=== PATIENT | female | born 1945 | race Caucasian/White ===

== ENCOUNTER 2018-04-16 11:41 | Inpatient (IN) ==
[2018-04-16] MEDS ORDERED: CeFAZolin Syr 2,000MG/20 ML 2,000 MG/20 ML SYRINGE IVPB ONE (12:08)
[2018-04-16] MEDS ORDERED: Ringers Solution, Lactated 1,000 ML IVC SCH ×2 (12:15→17:23)
--- NOTE | 2018-04-16 12:22 | History & Physical Report ---
Date of Encounter: 04/16/18 Time of Encounter: 12:21 24 Hour HP Update - Instructions Instructions: If the History and Physical is less than 30 days old and was completed prior to A.M. admission and or procedure and has NOT been updated on calendar day of procedure please complete this update prior to performing procedure. - Update Patient reports changes in Medical Condition: No Changes in examination, assessment, or condition: No Changes in Medication: No Preop tests/diagnostics Reviewed: Yes Surgery Remains Indicated: Yes Consent for Planned Operative Procedure(s) Verified: Yes - Pre-Operative Checklist Preoperative Checklist Indicated: No Prophylactic Antibiotic Ordered: Yes Is VTE Prophylaxis Indicated?: Yes
[2018-04-16] MEDS ORDERED: Famotidine 20 MG/2 ML VIAL IVP ONE (12:46)
[2018-04-16] MEDS ORDERED: Pregabalin 75 MG CAPSULE PO ONE (12:47)
[2018-04-16] MEDS ORDERED: Acetaminophen IV 1,000 MG/100 ML INFUS..BTL IVPB ONE (12:47)
--- NOTE | 2018-04-16 12:50 | Anesthesia Evaluation PreOp ---
Date of Encounter: 04/16/18 Time of Encounter: 12:48 - Past History Planned Operation: Robotic L-TKR Cardiac History: HTN Pulmonary History: Denies Any Significant HX IRRIGATION ENGINEER History: Denies Any Significant HX Other Medical History: Denies Any Significant HX Anesthesia History: No Prior Anesthetic Complications, Past Anesthesia (Breast lumpectomy) Alcohol Use: none Drug use: none Medications and Allergies Aspirin Enteric Coated [Aspirin EC] 325 mg PO BID #20 tablet.dr 04/16/18 [Rx] Lisinopril [Zestril] 20 mg PO DAILY 04/16/18 [History] Multivitamin [Multivitamins] 1 cap PO DAILY 04/16/18 [History] OxyCODONE Immed Rel [Roxicodone 5 MG] 5 mg PO Q6HR PRN 5 Days #20 tablet 8 [Rx] Allergy/AdvReac Type Severity Reaction Status Date / Time No Known Allergies Allergy Verified 04/16/18 12:03 - Meds/Allergy Pre-op Review Medications Reviewed: Yes Allergies Reviewed: Yes Beta Blockers on Current Med List: No Anesthesia Results - Labs Laboratory Tests 11/16/17 03/24/18 03/24/18 08:42 12:00 12:00 WBC 5.7 Hgb 12.5 Hct 38.8 Plt Count 204 PT 11.2 INR 1.0 APTT 35.6 Sodium Potassium Chloride Carbon Dioxide BUN Est GFR (Non-Af Amer) Glucose 93 03/24/18 12:00 WBC Hgb Hct Plt Count PT INR APTT Sodium 141 Potassium 4.2 Chloride 107 Carbon Dioxide 28 BUN 16 Est GFR (Non-Af Amer) > 60 Glucose - Imaging EKG: image reviewed (64bpm - SINUS RHYTHM Electronically Signed On 03-26-2018 22:54:36 EDT by Laila Schmitt) Anesthesia Exam O2 Sat Height 1.57 m Height 1.57 m Weight 63.049 kg Weight 63.049 kg O2 Sat by Pulse Oximetry 99 Vital Signs Temp Pulse Resp BP Pulse Ox 98.3 F 61 18 188/81 99 04/16/18 12:30 04/16/18 12:30 04/16/18 12:30 04/16/18 12:30 04/16/18 12:30 Height: 5'0" Weight: 140# BMI = 25.4 - HEENT Pupil (Motor): Pupils equal, EOMI Mallampati: II Teeth: Normal, Missing Denture Type: Upper: Partial, Lower: Partial Oral Opening: Greater than 3 - IRRIGATION ENGINEER LOC: Oriented IRRIGATION ENGINEER Motor: Normal RUE, Normal LUE, Normal RLE, Normal LLE, Normal Face IRRIGATION ENGINEER Sensory: Normal: RUE, LUE, RLE, LLE, Face - Cardiac Rhythm: Regular Murmur: None - Pulmonary Breath Sounds: bilateral Clear Respiratory Effort: Symmetrical Anesthesia Assess/Plan ASA Score: 2 Modified [place] Scale for Level of Consciousness: Cooperative, oriented, and tranquil Anesthetic Plan: General, Regional Monitoring Plan: Standard Monitors Recovery Plan: PACU Anes Supervising Prov Stmt: Pt seen/evaluated, R&B Discussed, questions answered and consent obtained. Radha Longo MD
--- NOTE | 2018-04-16 13:21 | Discharge Summary ---
<Oh Quiñones - Last Filed: 04/16/18 13:20> Orders not resulted at time of discharge: Pending orders 04/16/18 00:01 XR knee LT 1-2V [XR] Routine H/H [Hemoglobin and Hematocrit] [HEME] Routine 04/16/18 12:46 US anesthesia pain block [US] Routine - Discharge Diagnosis (1) Arthritis of left knee Priority: Primary Status: Chronic (2) Status post total left knee replacement Priority: Primary Status: Acute (3) Hypertension Priority: Secondary Status: Chronic Qualifiers: Hypertension type: unspecified Qualified Code(s): I10 - Essential (primary) hypertension - Hospital Course Hospital course: Ms. Pierson is a 73 year old female - Time Spent with Patient Total time spent providing and/or coordinating discharge services: - Discharge Medications Home Medications: Aspirin Enteric Coated [Aspirin EC] 325 mg PO BID #20 tablet.dr 04/16/18 [Rx] Lisinopril [Zestril] 20 mg PO DAILY 04/16/18 [History] Multivitamin [Multivitamins] 1 cap PO DAILY 04/16/18 [History] OxyCODONE Immed Rel [Roxicodone 5 MG] 5 mg PO Q6HR PRN 5 Days #20 tablet 04/16/18 [Rx] Scopolamine Patch [Transderm-Scop] 1.5 mg TD Q72H patch.[id number] 04/20/18 [Rx] Allergies/Adverse Reactions: Allergy/AdvReac Type Severity Reaction Status Date / Time No Known Allergies Allergy Verified 04/16/18 12:03 Primary care physician: Milena Levien - Patient Status Disposition: Transfer SNF Condition: Good - Discharge Instructions Instructions: Total Knee Replacement (DC) Follow Up With: Milena Levine [Primary Care Provider] - <Radha Bueno - Last Filed: 04/20/18 13:41> Date of Encounter: 04/20/18 Time of Encounter: 13:37 - Discharge Diagnosis (1) Acute blood loss anemia Priority: Secondary Status: Acute Comments: Resolved - Received 2units of blood on 04/18. Asympt at this time. Laboratory Results - last 72 hr 04/18/18 04/18/18 04/18/18 02:46 02:46 08:21 Hgb 7.5 L Hct 23.8 L Sodium 139 Potassium 4.4 Chloride 108 H Carbon Dioxide 27 BUN 21 Creatinine 0.80 Est GFR ( Amer) > 60 Est GFR (Non-Af Amer) > 60 BUN/Creatinine Ratio 26 Glucose 138 H Calculated Osmolality 293 Calcium 8.3 L Blood Type O POSITIVE Antibody Screen NEGATIVE Crossmatch See Detail 04/19/18 03:56 Hgb 10.2 L D Hct 30.9 L Sodium Potassium Chloride Carbon Dioxide BUN Creatinine Est GFR ( Amer) Est GFR (Non-Af Amer) BUN/Creatinine Ratio Glucose Calculated Osmolality Calcium Blood Type Antibody Screen Crossmatch (2) Status post total left knee replacement Priority: Primary Status: Acute Comments: Opsite dressing, leave intact until first post-operative visit. If dressing becomes >50% saturated, contact office, remove dressing and place appropriate dressing in its place. Do not allow for dressing to get wet. Zipline/Reddick in place, plan to remove at post-operative day #14-16. Total Joint Precautions x 6 weeks Apply cold therapy wrap 3-6x/day for 20 minutes at a time. Encourage ambulation throughout the day Use Incentive spirometer 10x/hour. Elevate affected extremity above heart as tolerated. Brace: Wear knee immobilizer at night until first post-operative appointment. (3) Arthritis of left knee Priority: Primary Status: Chronic (4) Hypertension Status: Chronic Qualifiers: Hypertension type: unspecified Qualified Code(s): I10 - Essential (primary) hypertension - Hospital Course Hospital course: Ms. Pierson is a 73 year old female status post Total Knee Replacement on 04/16/18 with . She had acute blood loss anemia and received 2 units of blood on 04/18, with post-operative nausea. We held Oxycodone on 04/20, and started Cedar and added Scopalamine patch. Patient otherwise had uneventful postoperative course. Stable for discharge. A&OX3 Afebrile, vital signs stable. Vital Signs Temp Pulse Resp BP Pulse Ox 04/20/18 09:51 98.1 F 86 18 153/76 97 04/20/18 06:37 98.4 F 81 96 169/72 04/20/18 03:33 98.1 F 80 16 138/76 94 04/19/18 18:54 97.5 F L 83 16 147/73 99 04/19/18 15:27 97.8 F 88 18 132/61 99 Intake and Output 04/19/18 04/20/18 04/20/18 23:59 07:59 15:59 Intake Total 320 / 320 Output Total 350 / 350 450 / 450 300 / 300 Balance -30 / -30 -450 / -450 -300 / -300 Intake: Oral 320 / 320 Output: Urine 350 / 350 450 / 450 300 / 300 Other: Meal Dinner Percent of Meal Consumed 50% # Voids 1 1 Weight 64.6 kg 04/19 Labs reviewed. H/H - stable, asymptomatic Laboratory Results - last 72 hr 04/18/18 04/18/18 04/18/18 02:46 02:46 08:21 Hgb 7.5 L Hct 23.8 L Sodium 139 Potassium 4.4 Chloride 108 H Carbon Dioxide 27 BUN 21 Creatinine 0.80 Est GFR ( Amer) > 60 Est GFR (Non-Af Amer) > 60 BUN/Creatinine Ratio 26 Glucose 138 H Calculated Osmolality 293 Calcium 8.3 L Blood Type O POSITIVE Antibody Screen NEGATIVE Crossmatch See Detail 04/19/18 03:56 Hgb 10.2 L D Hct 30.9 L Sodium Potassium Chloride Carbon Dioxide BUN Creatinine Est GFR ( Amer) Est GFR (Non-Af Amer) BUN/Creatinine Ratio Glucose Calculated Osmolality Calcium Blood Type Antibody Screen Crossmatch Pain control: adequate Participating in PT. All questions and concerns addressed. Educated on use of incentive spirometer. Encouraged ambulation and proper hydration. Patient educated on post-operative restrictions and post-operative care. Assessment and plan: Continue with postoperative care Discharge plan: GF, ECF today. Scopalamine patch placed Cedar RX given. - Time Spent with Patient Total time spent providing and/or coordinating discharge services: Date of admission: 04/17/18 07:55 Primary care physician: Milena Levine Consults: 04/16/18 17:23 Consult to Occupational Therapy [CONS] Routine Comment: Evaluate, develop and implement POC Reason for Consult: post knee surgery Does patient have active BEDREST order?: No Is patient medically & hemodynamically stable?: Yes Consult to Orthopedic Navigator [CONS] [CONS] Routine Consult to Physical Therapy [CONS] Routine Comment: Evaluate, develop and impliment POC Reason for Consult: post knee surgery Does patient have active BEDREST order?: No Is patient medically & hemodynamically stable?: Yes Consult to Exhaust Tender [CONS] Routine Reason for SW Consult: post op joint replacement RT Post Op Consult [CONS] Routine Discharging clinician: Radha Bueno Anticipated date of discharge: 04/20/18 - Impressions ITS Impressions Knee X-Ray 04/16/18 00:01 IMPRESSION: Status post left total knee arthroplasty. D/ / Nba Brizuela MD / Nba Brizuela MD Interpreting Provider: Nba Brizuela MD - Patient Status Functional capacity at discharge: uses cane/walker Overall status at discharge: patient is progressing back to baseline
[2018-04-16] MEDS ORDERED: Tetracaine/PF 20 MG/2 ML AMPUL ONE (13:32)
[2018-04-16] MEDS ORDERED: Bupivacaine/Clonidine Syringe 1 EACH SYRINGE ONE (13:32)
[2018-04-16] MEDS ORDERED: ROPIVACAINE HCL/PF 0.5% 30 ML VIAL ONE (13:32)
[2018-04-16] MEDS ORDERED: *HR* Midazolam HCl 2 MG/2 ML VIAL ONE (13:44)
[2018-04-16] MEDS ORDERED: *HR* FentaNYL (PF) 100 MCG/2 ML VIAL ONE (13:44)
[2018-04-16] MEDS ORDERED: Ethanol\\Acetic Acid\\Na Ace\\Ben 1,000 ML IRRIG.SOLN IR ONE (13:46)
[2018-04-16] MEDS ORDERED: *HR* Propofol 200 MG/20 ML VIAL IVP ONE (13:46)
[2018-04-16] MEDS ORDERED: Lidocaine -MPF 2% 2 ML VIAL ONE (13:48)
[2018-04-16] MEDS ORDERED: EPHEDrine 50 MG/ML VIAL ONE (14:58)
[2018-04-16] MEDS ORDERED: Ondansetron 4 MG/2 ML VIAL ONE (15:02)
[2018-04-16] MEDS ORDERED: Dexamethasone 4 MG/ML VIAL ONE (15:02)
--- NOTE | 2018-04-16 15:42 | Orthopedic Operative Note ---
Date of procedure: 04/16/18 Pre-op diagnosis: Left knee arthritis Post-op diagnosis: same Procedure: Procedure: Left robotic-assisted Total knee replacement Estimated blood loss: 300 cc Hardware: Metal and polyethylene replacement. [place] Femur: 3 Tibia:3 TS insert: 9 Patella:36 Exam Under anesthesia: 24 degree flexion contracture 15 degree varus as calculated by the robot full flexion and no instability Procedural Notes: Grade 4 arthritic changes all 3 compartments Operative procedure: The patient was brought to the operating room and placed on the operating room table. After general anesthesia was administered the operative knee was examined. Findings were noted in the exam under anesthesia. The operative extremity was prepped and draped in sterile surgical fashion. The patient received IV antibiotics prior to skin incision. A standard midline incision was made centered over the patella. The incision was made through the skin and subcutaneous tissue. A medial parapatellar tendon approach was performed. Care was taken to preserve tissue along the medial aspect of the patella. And to protect the patella tendon. The deep MCL was released off the medial tibia. The infra patella fat pad was excised. The patella was everted and cut was made at the level of the insertion of the quadriceps and patella tendon. The patella was sized the guide was seated and the lug holes are drilled. Knee was brought into flexion. Patient noted to have grade 4 arthritic changes all 3 compartments. Steinmann pins were placed in the tibia and the femur for the tibial and femoral arrays respectively. Checkpoints were also placed in the tibia and the femur for calculation purposes. The knee including the femur and the tibial registered. Osteophytes, ACL and PCL were excised at this point. Extension and flexion were assessed with a valgus stress components were adjusted on the computer to balance the knee. Femoral cuts were made first with robotic assistance, these included the anterior cut posterior cuts chamfer cuts. Tibial cut was then performed with robotic assistance as well. Bone fragments were removed, as well as the medial and lateral meniscus. The size 3 femoral guide was seated box cut was made lug holes are drilled. The size 3 tibial tray was seated and prepared with the fin cutter. Trial reduction with the 9 TS Gayle revealed extension of 0 degree and 8 degrees full flexion. No varus valgus instability. Trial reduction revealed excellent patella tracking. All trial components were removed all bony surfaces were irrigated. The Tibia was seated followed by the femur, The selected Gayle size was seated and secured patella. Patient had similar findings for motion and stability. The knee was then irrigated out with 2 L of pulse irrigation. The extensor mechanism was closed with #2 FiberWire suture and #2 PDS suture. The subcutaneous tissue was then irrigated and closed deep with #1 PDS suture superficially with 0 PDS suture and skin was closed with zip tie The patient was then placed in a sterile dressing and a postoperative brace extubated and transferred to recovery room in stable condition. Anesthesia: GETA Surgeon: Oh Quiñones Was there an safety admin assistant present: No Estimated blood loss (cc): 300 Condition: stable Disposition: PACU
--- NOTE | 2018-04-16 16:17 | Anesthesia Evaluation Post Op ---
Date of Encounter: 04/16/18 Time of Encounter: 16:45 - Vital Signs Vital Signs: Vital Signs/O2 Sat/Glucose, Most Current Vital Signs Temp Pulse Resp BP Pulse Ox 04/16/18 16:40 98.0 F 62 18 143/60 100 04/16/18 16:30 98.0 F 72 18 179/78 100 04/16/18 16:20 97.6 F 89 18 165/77 100 04/16/18 16:10 97.6 F 92 18 170/78 100 04/16/18 16:00 97.5 F L 79 18 160/71 100 04/16/18 15:50 96.8 F L 89 18 129/75 100 04/16/18 14:27 60 16 135/61 98 04/16/18 14:12 59 16 139/62 98 04/16/18 14:07 63 16 136/60 98 04/16/18 14:02 60 16 146/61 95 04/16/18 13:57 60 18 179/78 97 04/16/18 12:30 98.3 F 61 18 188/81 99 Intake and Output Patient Weight 04/17/18 23:59 Weight 64.06 kg - Lungs Lungs: Clear Ascult./Percussion - Airway Airway: Non-obstructed - Cardiovascular Regular Rate, Baseline Rhythm - Mental Status Mental Status: Alert & Oriented, Answers Appropriately - Pain Pain Scale: 2 Pain Scale used: Numeric (1 - 10) - Nausea Vomiting Nausea Vomiting: Not Present - Hydration Hydration: Tolerates oral liquids - Discharge PostOp Status: Transfer Patient to floor Anes Supervising Prov Stmt: Pt seen/evaluated, VSS and has met criteria for discharge to home. - MD Donta
[2018-04-16 16:27] LABS: Hematocrit 33.6 % (35.3-44.9); Hemoglobin 11.2 g/dL (11.5-15.4)
[2018-04-16] MEDS ORDERED: *HR* Labetalol 20 MG/4 ML SYRINGE IVP ONE (16:34)
[2018-04-16] MEDS ORDERED: *HR* Labetalol 20 MG/4 ML SYRINGE IVP PRN (16:35)
[2018-04-16] MEDS ORDERED: Sennosides 8.6 MG TABLET PO PRN (17:23)
[2018-04-16] MEDS ORDERED: *HR* OxyCODONE/APAP 5/325 TABLET PO PRN (17:23)
[2018-04-16] MEDS ORDERED: MOM Conc 10 ML UD.LIQ PO PRN (17:23)
[2018-04-16] MEDS ORDERED: Naloxone 0.4 MG/ML INJ IVP PRN (17:23)
[2018-04-16] MEDS ORDERED: Temazepam 15 MG CAPSULE PO PRN (17:23)
[2018-04-16] MEDS: *HR* Enoxaparin 30 MG/0.3 ML SYRINGE SQ SCH (18:19)
[2018-04-16] MEDS: *HR* OxyCODONE Immed Rel 5 MG TABLET PO PRN (18:19)
[2018-04-17] MEDS: Ondansetron 4 MG/2 ML VIAL IVP PRN (03:18)
[2018-04-17] MEDS: *HR* Enoxaparin 30 MG/0.3 ML SYRINGE SQ SCH ×2 (05:17→17:54)
[2018-04-17] MEDS: Multivit/Ca/Min/Fe/FA 1 TAB TABLET PO SCH (07:37)
[2018-04-17] MEDS: Lisinopril 20 MG TABLET PO SCH (07:37)
--- NOTE | 2018-04-17 07:55 | Orthopedics Progress Note ---
Date of Encounter: 04/17/18 Time of Encounter: 07:54 - Assessment and Plan (1) Arthritis of left knee Current Visit: Yes Status: Chronic (2) Status post total left knee replacement Current Visit: Yes Status: Acute (3) Hypertension Current Visit: Yes Status: Chronic Qualifiers: Hypertension type: unspecified Qualified Code(s): I10 - Essential (primary) hypertension Subjective Interval history: Patient was seen this morning doing well without complaints. Afebrile vital signs stable. Operative extremity: Neurovascularly intact Dressing clean dry and intact Calves nontender Assessment and plan: Continue with postoperative care Patient unable to be discharged today patient is unsafe to go home, we will convert inpatient with the plan for discharge tomorrow the patient may need extended care facility if she does not progress appropriately with physical therapy. Objective Vital signs: Vital Signs Temp Pulse Resp BP Pulse Ox 04/17/18 03:09 97.7 F 65 14 111/67 94 04/17/18 00:17 97.6 F 64 14 97/56 95 04/16/18 20:20 97.4 F L 71 16 135/65 97 04/16/18 20:10 97 04/16/18 19:13 97.4 F L 66 14 132/62 97 04/16/18 18:23 97.4 F L 63 16 123/69 100 04/16/18 17:51 97.7 F 61 16 162/74 99 04/16/18 17:30 100 04/16/18 17:25 97.5 F L 63 14 154/76 100 04/16/18 16:40 98.0 F 62 18 143/60 100 04/16/18 16:30 98.0 F 72 18 179/78 100 04/16/18 16:20 97.6 F 89 18 165/77 100 04/16/18 16:10 97.6 F 92 18 170/78 100 04/16/18 16:00 97.5 F L 79 18 160/71 100 04/16/18 15:50 96.8 F L 89 18 129/75 100 04/16/18 14:27 60 16 135/61 98 04/16/18 14:12 59 16 139/62 98 04/16/18 14:07 63 16 136/60 98 04/16/18 14:02 60 16 146/61 95 10/20/18 13:57 60 18 179/78 97 04/16/18 12:30 98.3 F 61 18 188/81 99 Intake and Output 04/16/18 04/16/18 04/17/18 15:59 23:59 07:59 Intake Total 100 / 100 100 / 100 Output Total 300 / 300 500 / 500 Balance -300 / -300 100 / 100 -400 / -400 Intake: IV Fluids 100 / 100 100 / 100 Ancef 2,000 MG In 0.9 % Sodium 100 / 100 100 / 100 Chloride 100 ML @ 200 mls/hr IVPB Q8H VAINNEY Rx#:[id number] Oral 0 / 0 Output: Urine 500 / 500 Estimated Blood Loss 300 / 300 Other: Weight 63.049 kg 64.06 kg Patient Weight 04/17/18 23:59 Weight 64.06 kg - Labs CBC & BMP: 04/16/18 16:10 Labs: Abnormal lab results Hgb 11.2 g/dL (11.5-15.4) L 04/16/18 16:10 Hct 33.6 % (35.3-44.9) L 04/16/18 16:10 Consult Discharge Plan - Plan Referrals: Milena Levine [Primary Care Provider] - Prescriptions: Aspirin Enteric Coated [Aspirin EC] 325 mg PO BID #20 tablet. OxyCODONE Immed Rel [Roxicodone 5 MG] 5 mg PO Q6HR PRN 5 Days #20 tablet PRN Reason: Pain
[2018-04-17 08:15] LABS: Hemoglobin 8.9 g/dL (11.5-15.4)
[2018-04-17 08:40] LABS: BUN/Creatinine Ratio 24 (6-26); Blood Urea Nitrogen 18 mg/dL (8-23); Calcium 8.7 mg/dL (8.6-10.3); Carbon Dioxide 23 mEq/L (23-29); Chloride 106 mEq/L (98-107); Glucose 169 mg/dL (70-105); Osmolality,Calculated 292 (280-300); Potassium 4.4 mEq/L (3.5-5.1); Sodium 138 mEq/L (136-145); eGFR For Non-African Americans > 60 (> 60)
[2018-04-17] MEDS: traMADol 50 MG TABLET PO PRN (17:54)
[2018-04-18] MEDS: *HR* OxyCODONE Immed Rel 5 MG TABLET PO PRN ×2 (00:16→08:47)
[2018-04-18 02:58] LABS: Hematocrit 23.8 % (35.3-44.9); Hemoglobin 7.5 g/dL (11.5-15.4)
[2018-04-18 03:17] LABS: BUN/Creatinine Ratio 26 (6-26); Blood Urea Nitrogen 21 mg/dL (8-23); Calcium 8.3 mg/dL (8.6-10.3); Carbon Dioxide 27 mEq/L (23-29); Chloride 108 mEq/L (98-107); Glucose 138 mg/dL (70-105); Osmolality,Calculated 293 (280-300); Potassium 4.4 mEq/L (3.5-5.1); Sodium 139 mEq/L (136-145); eGFR For Non-African Americans > 60 (> 60)
[2018-04-18] MEDS: *HR* Enoxaparin 30 MG/0.3 ML SYRINGE SQ SCH ×2 (05:43→18:43)
--- NOTE | 2018-04-18 06:51 | Orthopedics Progress Note ---
Date of Encounter: 04/18/18 Time of Encounter: 06:50 - Assessment and Plan (1) Arthritis of left knee Current Visit: Yes Status: Chronic (2) Status post total left knee replacement Current Visit: Yes Status: Acute (3) Hypertension Current Visit: Yes Status: Chronic Qualifiers: Hypertension type: unspecified Qualified Code(s): I10 - Essential (primary) hypertension (4) Acute blood loss anemia Current Visit: Yes Status: Acute Subjective Interval history: Patient was seen this morning doing well without complaints. Afebrile vital signs stable. Operative extremity: Neurovascularly intact Dressing clean dry and intact Calves nontender Assessment and plan: Continue with postoperative care Hemoglobin 7.5 transfuse 2 units will see if patient stable for discharge this afternoon. Objective Vital signs: Vital Signs Temp Pulse Resp BP Pulse Ox 04/18/18 06:44 97.1 F L 83 14 113/63 97 04/18/18 03:24 98.0 F 69 14 108/70 96 04/18/18 00:16 98.5 F 78 16 116/66 94 04/17/18 20:30 96 04/17/18 18:52 98.0 F 87 16 113/62 96 04/17/18 16:24 97.5 F L 88 16 120/70 98 04/17/18 12:11 97.4 F L 67 17 79/46 100 04/17/18 08:11 97.8 F 78 18 110/66 98 Intake and Output 04/17/18 04/17/18 04/18/18 15:59 23:59 07:59 Intake Total 1540 / 1540 0 / 0 Output Total 600 / 600 500 / 500 300 / 300 Balance -600 / -600 1040 / 1040 -300 / -300 Intake: IV Fluids 1000 / 1000 Lactated Ringers 1,000 ML @ 75 1000 / 1000 mls/hr IVC .[id number] VIANNEY Rx#: [id number] Oral 540 / 540 0 / 0 Output: Urine 600 / 600 500 / 500 300 / 300 Other: Meal Dinner Percent of Meal Consumed 100% Stool Size Small Stool Consistency soft # Voids 1 # Bowel Movements 1 Weight 64.52 kg Patient Weight 04/18/18 23:59 Weight 64.52 kg - Labs CBC & BMP: 04/18/18 02:46 04/18/18 02:46 Labs: Abnormal lab results Hgb 7.5 g/dL (11.5-15.4) L 04/18/18 02:46 Hct 23.8 % (35.3-44.9) L 04/18/18 02:46 Chloride 108 mEq/L (98-107) H 04/18/18 02:46 Glucose 138 mg/dL (70-105) H 04/18/18 02:46 Calcium 8.3 mg/dL (8.6-10.3) L 04/18/18 02:46 Consult Discharge Plan - Plan Referrals: Milena Levine [Primary Care Provider] -
[2018-04-18] MEDS: Multivit/Ca/Min/Fe/FA 1 TAB TABLET PO SCH (08:47)
[2018-04-18] MEDS: Lisinopril 20 MG TABLET PO SCH (08:47)
[2018-04-18] MEDS ORDERED: 0.9 % Sodium Chloride 250 ML ONE ×2 (11:28→16:12)
[2018-04-18] MEDS: traMADol 50 MG TABLET PO PRN (21:20)
[2018-04-19 04:50] LABS: Hematocrit 30.9 % (35.3-44.9); Hemoglobin 10.2 g/dL (11.5-15.4)
[2018-04-19] MEDS: traMADol 50 MG TABLET PO PRN ×2 (05:17→16:41)
[2018-04-19] MEDS: *HR* Enoxaparin 30 MG/0.3 ML SYRINGE SQ SCH ×2 (05:18→16:42)
--- NOTE | 2018-04-19 06:26 | Orthopedics Progress Note ---
Date of Encounter: 04/19/18 Time of Encounter: 06:26 - Assessment and Plan (1) Arthritis of left knee Current Visit: Yes Status: Chronic (2) Status post total left knee replacement Current Visit: Yes Status: Acute (3) Hypertension Current Visit: Yes Status: Chronic Qualifiers: Hypertension type: unspecified Qualified Code(s): I10 - Essential (primary) hypertension (4) Acute blood loss anemia Current Visit: Yes Status: Acute Subjective Interval history: Patient was seen this morning doing well without complaints. Afebrile vital signs stable. Operative extremity: Neurovascularly intact Dressing clean dry and intact Calves nontender Assessment and plan: Continue with postoperative care Hemoglobin 10.2 stable for discharge Objective Vital signs: Vital Signs Temp Pulse Resp BP Pulse Ox 04/18/18 23:25 98.4 F 105 14 146/78 93 04/18/18 20:15 99.0 F 83 16 154/83 94 04/18/18 18:26 99.1 F 86 14 146/69 97 04/18/18 16:50 98.8 F 83 16 129/83 96 04/18/18 16:35 98.6 F 85 15 167/78 04/18/18 15:58 97.6 F 82 18 145/80 99 04/18/18 14:05 98.1 F 83 14 136/65 96 04/18/18 11:49 98.2 F 76 14 112/70 96 04/18/18 11:35 97.7 F 73 14 108/69 93 04/18/18 10:30 98.2 F 74 14 113/64 97 04/18/18 06:44 97.1 F L 83 14 113/63 97 Intake and Output 04/18/18 04/18/18 04/19/18 15:59 23:59 07:59 Intake Total 874 / 874 300 / 300 Output Total 400 / 400 800 / 800 600 / 600 Balance 474 / 474 -500 / -500 -600 / -600 Intake: Oral 240 / 240 0 / 0 Blood Product 634 / 634 300 / 300 Rbcs Leuko Poor As-1 Unit 300 / 300 [id number] Rbcs Leuko Poor As-1 Unit 634 / 634 [id number] Output: Urine 400 / 400 800 / 800 600 / 600 Other: Meal Lunch Percent of Meal Consumed 50% - Labs CBC & BMP: 04/19/18 03:56 04/18/18 02:46 Labs: Abnormal lab results Hgb 10.2 g/dL (11.5-15.4) L D 04/19/18 03:56 Hct 30.9 % (35.3-44.9) L 04/19/18 03:56 Chloride 108 mEq/L (98-107) H 04/18/18 02:46 Glucose 138 mg/dL (70-105) H 04/18/18 02:46 Calcium 8.3 mg/dL (8.6-10.3) L 04/18/18 02:46 Consult Discharge Plan - Plan Referrals: Milena Levine [Primary Care Provider] -
[2018-04-19] MEDS: Lisinopril 20 MG TABLET PO SCH (09:45)
[2018-04-19] MEDS: Multivit/Ca/Min/Fe/FA 1 TAB TABLET PO SCH (09:45)
[2018-04-20] MEDS: *HR* Enoxaparin 30 MG/0.3 ML SYRINGE SQ SCH (06:21)
[2018-04-20] MEDS: *HR* OxyCODONE Immed Rel 5 MG TABLET PO PRN (06:59)
--- NOTE | 2018-04-20 08:02 | Orthopedics Progress Note ---
Date of Encounter: 04/20/18 Time of Encounter: 08:01 - Assessment and Plan (1) Arthritis of left knee Current Visit: Yes Status: Chronic (2) Status post total left knee replacement Current Visit: Yes Status: Acute (3) Hypertension Current Visit: Yes Status: Chronic Qualifiers: Hypertension type: unspecified Qualified Code(s): I10 - Essential (primary) hypertension (4) Acute blood loss anemia Current Visit: Yes Status: Acute Subjective Interval history: Patient was seen this morning doing well without complaints. Afebrile vital signs stable. Operative extremity: Neurovascularly intact Dressing clean dry and intact Calves nontender Assessment and plan: Continue with postoperative care stable for discharge Objective Vital signs: Vital Signs Temp Pulse Resp BP Pulse Ox 04/20/18 06:37 98.4 F 81 96 169/72 04/20/18 03:33 98.1 F 80 16 138/76 94 04/19/18 18:54 97.5 F L 83 16 147/73 99 04/19/18 15:27 97.8 F 88 18 132/61 99 04/19/18 11:27 98.3 F 82 18 171/80 95 04/19/18 10:19 98.7 F 76 16 155/70 97 Intake and Output 04/19/18 04/20/18 04/20/18 23:59 07:59 15:59 Intake Total 320 / 320 Output Total 350 / 350 450 / 450 Balance -30 / -30 -450 / -450 Intake: Oral 320 / 320 Output: Urine 350 / 350 450 / 450 Other: Meal Dinner Percent of Meal Consumed 50% # Voids 1 1 Weight 64.6 kg - Labs CBC & BMP: 04/19/18 03:56 04/18/18 02:46 Labs: Abnormal lab results Hgb 10.2 g/dL (11.5-15.4) L D 04/19/18 03:56 Hct 30.9 % (35.3-44.9) L 04/19/18 03:56 Chloride 108 mEq/L (98-107) H 04/18/18 02:46 Glucose 138 mg/dL (70-105) H 04/18/18 02:46 Calcium 8.3 mg/dL (8.6-10.3) L 04/18/18 02:46 Consult Discharge Plan - Plan Referrals: Milena Levine [Primary Care Provider] -
[2018-04-20] MEDS: Multivit/Ca/Min/Fe/FA 1 TAB TABLET PO SCH (08:27)
[2018-04-20] MEDS: Lisinopril 20 MG TABLET PO SCH (08:27)
[2018-04-20] MEDS: Ondansetron 4 MG/2 ML VIAL IVP PRN (08:27)
[2018-04-20 10:51] VITALS: BP 153/76
[2018-04-20] MEDS ORDERED: *HR* HYDROcodone/Acet 5/325 mg TABLET PO PRN (11:29)
[2018-04-20] MEDS ORDERED: Scopolamine Patch 1.5 MG PATCH.TD72 TD SCH (11:45)
--- NOTE | 2018-04-20 13:36 | Physician Discharge Referral ---
ExtendedCare Referral Info Transfer To: [facility] Provider in Charge: Provider in Charge after Transfer: PCP Institutional Level of Care: Skilled - Diagnosis (1) Acute blood loss anemia Priority: Primary Status: Acute (2) Status post total left knee replacement Priority: Primary Status: Acute (3) Arthritis of left knee Priority: Primary Status: Chronic (4) Hypertension Priority: Secondary Status: Chronic Expected Duration of Placement: < 30 days Prognosis: Good Aware of Diagnosis: Patient Aware of Prognosis: Patient - Transfer Medications Home Medications: Aspirin Enteric Coated [Aspirin EC] 325 mg PO BID #20 tablet.dr 04/16/18 [Rx] Lisinopril [Zestril] 20 mg PO DAILY 04/16/18 [History] Multivitamin [Multivitamins] 1 cap PO DAILY 04/16/18 [History] OxyCODONE Immed Rel [Roxicodone 5 MG] 5 mg PO Q6HR PRN 5 Days #20 tablet [Rx] Scopolamine Patch [Transderm-Scop] 1.5 mg TD Q72H patch.[id number] 04/20/18 [Rx] Allergies/Adverse Reactions: Allergy/AdvReac Type Severity Reaction Status Date / Time No Known Allergies Allergy Verified 04/16/18 12:03 - Respiratory Orders None Smoking Cessation: Smoking cessation has been advised. For more information, call the [facility] Tobacco Quit Line at [phone]. - Lab Orders Lab Orders: CBC - Advance Directives Code Status: Full Code - Mobility Orders Chair, Ambulate - Rehabiliation Orders Rehab Potential: Good Rehab Orders: ROM Exercises, Evaluation for Physical Therapy, Evaluation for Occupational Therapy - Treatments Skin tear care topically daily PRN per policy, May check for fecal impaction rectally daily PRN, Fleet enema rectally every other day PRN cleansing purposes List/Other: Opsite dressing, leave intact until first post-operative visit. If dressing becomes >50% saturated, contact office, remove dressing and place appropriate dressing in its place. Do not allow for dressing to get wet. Zipline/Tomi in place, plan to remove at post-operative day #14-16. Total Joint Precautions x 6 weeks Apply cold therapy wrap 3-6x/day for 20 minutes at a time. Encourage ambulation throughout the day Use Incentive spirometer 10x/hour. Elevate affected extremity above heart as tolerated. Brace: Wear knee immobilizer at night until first post-operative appointment. - Diet Orders Regular CERTIFICATION: I certify that the transfer of the above named patient to an Extended Care Facility is necessary for the continuing treatment of the diagnosis listed. The above information is true and accurate reflection of patient's current condition. Confidential - Redisclosure prohibited without a patient's written consent.
--- NOTE | 2018-04-21 18:10 | Event Note ---
Date of Encounter: 04/19/18 Time of Encounter: 18:09 Patient was seen and evaluated. Doing well Stable for D/C - patient wished to pursue ECF placement, pending auth.
== END 2018-04-20 15:50 | DRG 470 ==
LOC: SAMDAY 11:41 → 3NENU 17:34
PROVIDERS: ADMIT Orthopaedic Surgery; ATTEND Orthopaedic Surgery